=== PATIENT | female | born 1985 | race Caucasian/White ===

== ENCOUNTER 2022-01-26 23:35 | Emergency (ER) | payer OTHER, SELFPAY ==
--- NOTE | 2022-01-27 00:27 | PC.NURSE ---
LWBS-pt not triaged.
== END 2022-01-27 00:27 | disposition left against medical advice (07) ==
DX: Z53.21 Procedure and treatment not carried out due to patient leaving prior to being seen by health care provider (principal)
CPT/HCPCS: 99199